=== PATIENT | male | born 1985 | race Caucasian/White ===

== ENCOUNTER 2016-12-27 06:34 | Day surgery (SDC) | payer OTHER ==
[~2016-12-27] VITALS: Ht 182.9 cm; Wt 96.4 kg
[~2016-12-27 06:34] MED LIST: ALBU90AE PUFF; FAMO20 PO; MOME13HF IH; SODIUM CHLORIDE 0.9% 1,000 ML IV ONE; TIOT4MIS2 PUFF; [UNRECOGNIZED DRUG - CODE] IH
[2016-12-27] MEDS ORDERED: SODIUM CHLORIDE 0.9% 1,000 ML IV ONE (07:00)
[2016-12-27] MEDS ORDERED: FentaNYL CITRATE-PF 100 MCG/2 ML VIAL ONE (07:35)
[2016-12-27] MEDS ORDERED: MIDAZOLAM HCL 2 MG/2 ML VIAL ONE (07:35)
[2016-12-27] MEDS ORDERED: MethylPREDNISolone SOD SUCC 125 MG/2 ML VIAL IVP ONE (08:45)
[2016-12-27] MEDS ORDERED: MethylPREDNISolone SOD SUCC 125 MG/2 ML VIAL ONE (08:49)
[2016-12-27] MEDS ORDERED: LIDOCAINE HCL 4% 50 ML SOLUTION TP ONE (11:13)
[2016-12-27] MEDS ORDERED: ALBUTEROL SULFATE 2.5 MG/0.5 ML NEB SOLUTION NEB ONE (11:13)
[2016-12-27] MEDS ORDERED: LIDOCAINE HCL 2% 30 ML JELLY TP ONE (11:13)
[2016-12-27] MEDS ORDERED: BENZOCAINE 20% 50 MCG/SPRAY 57 GM TP ONE (11:13)
[2016-12-27] MEDS ORDERED: OXYGEN THERAPY IH SCH (20:00)
== END 2016-12-27 10:00 | disposition home or self-care (01) ==
LOC: SURGERY 06:34
PROVIDERS: ATTEND Internal Medicine Critical Care Medicine
DX: J38.4 Edema of larynx (principal); B37.0 Candidal stomatitis; J44.9 Chronic obstructive pulmonary disease, unspecified; K21.9 Gastro-esophageal reflux disease without esophagitis; Z87.891 Personal history of nicotine dependence; Z90.49 Acquired absence of other specified parts of digestive tract; Z98.890 Other specified postprocedural states; Z87.01 Personal history of pneumonia (recurrent); Z86.11 Personal history of tuberculosis
CPT/HCPCS: 31623; 31624; 71010; 87015 ×2; 87070; 87101; 87147; 87205; 87220; 88108; 88184; 88185; 88312; J2250; J2930; J3010; J7030